=== PATIENT | female | born 1990 | race Caucasian/White ===

== ENCOUNTER 2016-11-13 08:21 | Outpatient (CLI) | payer OTHER ==
[~2016-11-13] VITALS: Ht 170.2 cm; Wt 81.5 kg
[2016-11-13] MEDS ORDERED: PRENAT PO (08:34)
[2016-11-13] MEDS ORDERED: FOLI20CA PO (08:34)
[2016-11-13] MEDS ORDERED: CITRACAL PO (08:35)
[2016-11-13] MEDS ORDERED: FERR325C PO (08:35)
[2016-11-13 08:36] VITALS: BP 119/77; PULSE 98; RESP 18; Ht 170.2 cm; Wt 81.5 kg
--- NOTE | 2016-11-13 09:30 | RADRPT ---
PROCEDURE: US OB. CLINICAL INDICATION: Post dates TECHNIQUE: Multiple sonographic images of the pelvis were obtained. Transabdominal imaging only w as performed. The images were reviewed on a PACS workstation. COMPARISON: No prior studies are available for comparison. FINDINGS: Single intrauterine gestation. Cephalic presentation. heart rate is 146 bpm. Measurements were made in order to determine age. The results are as follows: BPD = 9.16 cm HC = 32.45 cm AC = 34.62 cm FL = 7.55 cm Gestational age is 37 weeks 5 days and CECIL is 11/29/2016 by ultrasound criteria. Gestational age is 40 weeks 5 days and CECIL is 11/08/2016 by LMP. EFW = 3414 g +/- 512 g (25 %). The placenta is posterior. There is no evidence for an abruption or placenta previa. IMPRESSION: 1. Single live intrauterine gestation of approximately 37 weeks 5 days by ultrasound criteria. RPTAT: GG .Nam Aguirre MD, MD Date Time Electronically viewed and signed by .Nam Aguirre MD, on 11/13/2016 09:30 .R/
--- NOTE | 2016-11-13 09:31 | RADRPT ---
PROCEDURE: OB ultrasound for biophysical profile CLINICAL INDICATION: Post dates. Biophysical profile. . TECHNIQUE: Multiple sonographic images of the pelvis were obtained. Transabdominal view of the gr avid uterus are available for review. The images were reviewed on a PACS workstation. COMPARISON: None FINDINGS: breathing movement = 2/2 tone = 2/2 motion = 2/2 GURJIT = 2/2 Single intrauterine gestation is identified in cephalic position. heart rate is 141 bpm. Plac enta is posterior without evidence for abruption or previa. GURJIT measures 14.3 cm, within normal al its. IMPRESSION: 1. Single live intrauterine gestation. 2. Biophysical profile = 8/8. 3. GURJIT = 14.3 cm. RPTAT: GG .Nam Aguirre MD, Date Time Electronically viewed and signed by .Nam Aguirre MD, on 11/13/2016 09:31 .R/
== END 2016-11-13 10:34 | disposition home or self-care (01) ==
LOC: OBT 08:21 → L-D 08:22 → OBT 10:34
PROVIDERS: ATTEND Obstetrics & Gynecology
DX: O48.0 Post-term pregnancy (principal); Z3A.40 40 weeks gestation of pregnancy
CPT/HCPCS: 76815; 76818; Z7500; G0463

== ENCOUNTER 2016-11-15 06:00 | Inpatient (IN) | payer OTHER ==
[~2016-11-15] VITALS: Ht 170.2 cm; Wt 79.7 kg
[~2016-11-15 06:00] MED LIST: CITRACAL PO; FERR325C PO; FOLI20CA PO; PRENAT PO
[2016-11-15] MEDS ORDERED: LACTATED RINGER'S 1,000 ML IV SCH (10:28)
[2016-11-15] MEDS ORDERED: MISOPROSTOL 200 MCG TAB PR PRN (10:30)
[2016-11-15] MEDS ORDERED: IBUPROFEN 600 MG TAB PO PRN (10:30)
[2016-11-15] MEDS ORDERED: OXYTOCIN 30 UNITS/LR 500 ML IV SCH (10:30)
[2016-11-15] MEDS ORDERED: LIDOCAINE 1% (MPF) 30 ML INJ INJ PRN (10:30)
[2016-11-15] MEDS ORDERED: ACETAMINOPHEN/CODEINE #3 TAB PO PRN (10:30)
[2016-11-15] MEDS ORDERED: CARBOPROST 250 MCG INJ IM PRN (10:30)
[2016-11-15] MEDS ORDERED: METHYLERGONOVINE 0.2 MG INJ IM PRN (10:30)
[2016-11-15] MEDS ORDERED: BUTORPHANOL 2 MG INJ IV PRN (10:30)
[2016-11-15] MEDS ORDERED: OXYTOCIN 30 UNITS/LR 500 ML IV PRN (10:30)
[2016-11-15 10:49] VITALS: Ht 170.2 cm; Wt 79.7 kg
[2016-11-15 10:50] VITALS: BP 116/71; PULSE 82; RESP 20
[2016-11-15] MEDS: LACTATED RINGER'S 1,000 ML IV SCH ×3 (11:06→21:45)
[2016-11-15 11:18] VITALS: BP 113/73; PULSE 86
[2016-11-15 11:27] LABS: BASOPHILS % 0.2 % (0.0-2.0); EOSINOPHILS # 0.1 10^3/ul (0.0-0.5); EOSINOPHILS % 0.6 % (0.0-7.0); HEMOGLOBIN 13.4 g/dl (12.0-16.0); LYMPHOCYTES % 18.4 % (15.0-51.0); MEAN CORPUSCULAR HEMOGLOBIN 29.8 pg (29.0-33.0); MEAN CORPUSCULAR HGB CONC 32.8 g/dl (32.0-37.0); MEAN CORPUSCULAR VOLUME 90.8 fl (82.0-101.0); MEAN PLATELET VOLUME 8.7 fl (7.4-10.4); MONOCYTE # 0.8 10^3/ul (0.3-0.9); MONOCYTES % 7.2 % (0.0-11.0); NEUTROPHIL # 7.9 10^3/ul (1.6-7.5); NEUTROPHILS % 73.6 % (39.0-77.0); PLATELET COUNT 248 10^3/UL (140-440); RED BLOOD COUNT 4.51 10^6/ul (4.20-5.40); RED CELL DISTRIBUTION WIDTH 16.5 % (11.5-14.5); UNCORRECTED WBC 10.7 10^3/ul (4.8-10.8); WHITE BLOOD COUNT 10.7 10^3/ul (4.8-10.8)
[2016-11-15 11:31] LABS: CONDITION 1; LH ANALYZER COMMENTS 1
[2016-11-15 11:42] LABS: INR 0.91; PROTIME 12.3 Sec (12.2-14.2)
[2016-11-15 11:43] LABS: PARTIAL THROMBOPLASTIN TIME 25.2 Sec (25.0-35.0)
[2016-11-15 11:59] VITALS: BP 107/63; PULSE 86
[2016-11-15] MEDS ORDERED: DINOPROSTONE 10 MG VAG SUPP VAG ONE (12:00)
[2016-11-15] MEDS ORDERED: LACTATED RINGER'S 1,000 ML IV PRN (12:00)
[2016-11-16] MEDS: LACTATED RINGER'S 1,000 ML IV SCH ×4 (05:39→20:20)
[2016-11-16 08:05] VITALS: BP 97/54; PULSE 67; RESP 20
[2016-11-16] MEDS ORDERED: FENTAnyl 2MCG/ML-ROPIV 0.2% 100 ML ONE (11:47)
[2016-11-16] MEDS ORDERED: ZOLPIDEM 5 MG TAB PO PRN (12:30)
[2016-11-16] MEDS ORDERED: NALOXONE (0.4 MG/ML) INJ IV PRN (12:30)
[2016-11-16] MEDS ORDERED: HYDROmorphONE 1 MG/ML SYG IV PRN ×2 (12:30)
[2016-11-16] MEDS ORDERED: DIPHENHYDRAMINE 50 MG INJ IV PRN (12:30)
[2016-11-16] MEDS: FENTAnyl 2MCG/ML-ROPIV 0.2% 100 ML BAG EPI SCH ×2 (12:52→17:31)
[2016-11-16] MEDS: OXYTOCIN 30 UNITS/LR 500 ML IV SCH (13:00)
[2016-11-16] MEDS ORDERED: ONDANSETRON 4 MG INJ ONE (13:00)
[2016-11-16] MEDS: ONDANSETRON 4 MG INJ IV PRN ×2 (13:20→22:58)
[2016-11-17] MEDS: FENTAnyl 2MCG/ML-ROPIV 0.2% 100 ML BAG EPI SCH ×3 (00:17→09:18)
[2016-11-17] MEDS: LACTATED RINGER'S 1,000 ML IV SCH ×3 (02:24→10:49)
[2016-11-17] MEDS: OXYTOCIN 30 UNITS/LR 500 ML IV SCH ×5 (09:59→21:23)
[2016-11-17] MEDS ORDERED: CEFAZOLIN 2 GM/50 ML (PMX) 50 ML IVPB ONE (12:27)
--- NOTE | 2016-11-17 13:07 | HP ---
Date/Time of Note Date/Time of Note DATE: 11/17/16 TIME: 12:49 OB - History Hx of Present Free Text/Dictation 26 years old female 1 para 0 EDC November 08, 2016 admitted to [facility] at 41 week and 1 day for induction of labor, Pelvic examination on admission cervical dilatation less than 1 cm, 50% effacement vertex at -3 station. This patient has been getting care at [facility] her not complicated with gestational diabetes -induced hypertension or any other medical or surgical condition . Past history No history of hospital admission for any medical or surgical condition Family history, unremarkable negative for diabetes hypertension or psychological condition Allergy. Denies allergy to any known medication Social habit, denies a smoking or drinking or using any illicit drugs Review of system within normal compatible with term . Physical examination Temperature 98.2, pulse 86, respiration 18, blood pressure 113/73 Head ears nose and throat negative, neck supple no thyromegaly lungs clear to P& A, heart normal sinus rhythm no murmur, abdomen, fundal height 37 cm from symphysis pubis to the height of the fundus heart tone category 1. Pelvic exam cervix less than 1 cm dilated 50% effaced vertex at -2 station Extremities, no varicosities no edema Impression, intrauterine at 41 weeks plus gestation, admitted for induction of labor Plan of induction, intravaginal Cervidil. ., Estimated Due Date: Nov 08, 2016 : 1 Para: 0 Care: Good Care Ultrasounds: Normal mid trimester US Obstetrical Complications: None Medical Complications: None Past Family/Social History * Past Medical, Surgical, Family and Obstetric Histories reviewed from chart. Rubella: immune RPR/VDRL: Negative GBS Status: Negative HBsAG: Negative OB Admission Exam Vital Signs Vital Signs Vital Signs Date Time Temp Pulse Resp B/P Pulse Ox O2 Delivery O2 Flow Rate FiO2 11/16/16 08:05 67 20 11/15/16 10:50 98.2 116/71 Room Air Physical Exam HEENT: WNL Heart: Rhythm Normal Abdomen: WNL Extremities: Normal Reflexes: Normal Cervical Dilatation: Fingertip Effacement: 50% Station: -2 Membranes: Intact Amniotic Fluid: Thin Meconium Heart Rate: 130's Accelerations: Accelerations Present Decelerations: No Decelerations Varibility: Absent Last 72 hours Lab Results CBC & BMP 2/1/17 11:05 KENNY TIPTON MD Nov 17, 2016 13:05
--- NOTE | 2016-11-17 13:12 | LDN ---
Date/Time of Note Date/Time of Note DATE: 11/17/16 TIME: 13:07 Delivery Summary Normal spontaneous vaginal delivery of a baby boy from INGRID position shoulders delivered without difficulty rest of the baby's body follow nasal oropharyngeal suction to cord clamp after stopped pulsation baby handed to the team for immediate attention, placenta spontaneous expulsion inspected complete culture and sensitivity for aerobic and anaerobic from both side of the placenta and it was sent to pathology. Placenta Delivered: Spontaneously Meconium: Light Perineum intact?: No Anesthesia type: Epidural Estimated blood loss: 200 Sponge & Needle done & correct: Yes All needle counts correct: Yes Any foreign bodies felt in the: No Problems: Infant Delivery Information Sex Sex: male Apgars 1 Minute: 8 5 Minute: 9 Suctioning Nose & mouth suctioned at lashell: Yes Delee suction performed: Yes Umbilical Cord Umbilical cord with: 3 Vessels Cord presentations: nuchal cord Nuchal cord present X: 1 Cord Blood was obtained: Yes KENNY TIPTON MD Nov 17, 2016 13:12
[2016-11-17] MEDS ORDERED: CEFAZOLIN 2 GM/50 ML (PMX) 50 ML IVPB SCH (14:00)
[2016-11-17 14:05] VITALS: BP 111/56; PULSE 104; RESP 20
[2016-11-17] MEDS ORDERED: WITCH HAZEL/GLYCERIN PAD PR PRN (14:30)
[2016-11-17] MEDS ORDERED: DIBUCAINE 1% 30 GM OINT PR PRN (14:30)
[2016-11-17] MEDS ORDERED: ONDANSETRON 4 MG INJ IV PRN (14:30)
[2016-11-17] MEDS ORDERED: BENZOCAINE 20% 56 ML SPRAY TOP PRN (14:30)
[2016-11-17] MEDS ORDERED: LANOLIN 7 GM TUBE TOP PRN (14:30)
[2016-11-17] MEDS ORDERED: ACETAMINOPHEN/CODEINE #3 TAB PO PRN ×2 (14:30)
[2016-11-17] MEDS ORDERED: ACETAMINOPHEN 325 MG TAB PO PRN (14:30)
[2016-11-17] MEDS ORDERED: OXYCODONE/ASPIRIN (4.88/325) TAB PO PRN ×2 (14:30)
[2016-11-17 16:48] VITALS: BP 110/60; PULSE 100; RESP 20
[2016-11-17 20:30] VITALS: BP 121/70; PULSE 80; RESP 20
[2016-11-17] MEDS: IBUPROFEN 600 MG TAB PO SCH (21:04)
[2016-11-17] MEDS: CEFAZOLIN 2 GM/50 ML (PMX) 50 ML IVPB SCH (22:22)
[2016-11-18] VITALS (7 sets, daily range): BP systolic 93–121; BP diastolic 57–73; PULSE 73–86; RESP 18–20
[2016-11-18] MEDS: IBUPROFEN 600 MG TAB PO SCH ×5 (05:40→23:42)
[2016-11-18] MEDS: CEFAZOLIN 2 GM/50 ML (PMX) 50 ML IVPB SCH ×2 (05:40→13:38)
[2016-11-18] MEDS: SENNA/DOCUSATE NA (8.6MG/50MG) TAB PO SCH ×2 (09:09→21:06)
[2016-11-18 09:49] LABS: RED BLOOD COUNT 3.75 10^6/ul (4.20-5.40); WHITE BLOOD COUNT 17.4 10^3/ul (4.8-10.8)
[2016-11-18 09:50] LABS: EOSINOPHILS % 0.3 % (0.0-7.0); HEMATOCRIT 34.5 % (37.0-47.0); HEMOGLOBIN 11.3 g/dl (12.0-16.0); LYMPHOCYTES % 9.7 % (15.0-51.0); MEAN CORPUSCULAR HEMOGLOBIN 30.1 pg (29.0-33.0); MEAN CORPUSCULAR HGB CONC 32.8 g/dl (32.0-37.0); MEAN PLATELET VOLUME 10.7 fl (7.4-10.4); MONOCYTES % 6.6 % (0.0-11.0); NEUTROPHILS % 82.6 % (39.0-77.0); PLATELET COUNT 228 10^3/UL (140-440); RED CELL DISTRIBUTION WIDTH 15.8 % (11.5-14.5)
[2016-11-18 09:51] LABS: BASOPHILS % 0.1 % (0.0-2.0); EOSINOPHILS # 0.2 10^3/ul (0.0-0.5); LYMPHOCYTES # 1.7 10^3/ul (0.8-2.9); MONOCYTE # 1.2 10^3/ul (0.3-0.9); NEUTROPHIL # 14.4 10^3/ul (1.6-7.5)
--- NOTE | 2016-11-18 10:46 | PN ---
Date/Time of Note Date/Time of Note DATE: 11/18/16 TIME: 10:45 OB Subjective Subjective Subjective day 1 Afebrile, vital sign a stable, abdomen soft, uterus firm, lochia normal, extremity Laboratory Tests Test 11/18/16 07:00 Basophils # 0.010^3/ul Basophils % 0.1% Eosinophils # 0.210^3/ul Eosinophils % 0.3% Hematocrit 34.5% Hemoglobin 11.3g/dl Lymphocytes # 1.710^3/ul Lymphocytes % 9.7% Mean Corpuscular Hemoglobin 30.1pg Mean Corpuscular Hemoglobin Concent 32.8g/dl Mean Corpuscular Volume 92.0fl Mean Platelet Volume 10.7fl Monocytes # 1.210^3/ul Monocytes % 6.6% Neutrophils # 14.410^3/ul Neutrophils % 82.6% Nucleated Red Blood Cells # 0.010^3/ul Nucleated Red Blood Cells % 0.0/100WBC Platelet Count 51811^3/UL Red Blood Count 3.7510^6/ul Red Cell Distribution Width 15.8% White Blood Count 17.410^3/ul Current Medications Medications (Trade) Dose Ordered Sig/Ga Route PRN Reason Start Time Stop Time Status Last Admin Dose Admin Lactated Ringer's 1,000 ml @ 125 mls/hr Q8H IV 11/15/16 10:28 11/15/16 10:53 DC Lactated Ringer's (Lr) 1,000 ml @ 125 mls/hr Q8H IV 11/15/16 10:28 11/17/16 14:13 DC 11/17/16 10:49 Butorphanol Tartrate (Stadol) 2 mg Q2H PRN IV PAIN 11/15/16 10:30 11/17/16 14:13 DC 11/16/16 07:55 Lidocaine 30 ml 30 ml ONCE PRN INJ EPISIOTOMY/TEARING 11/15/16 10:30 11/17/16 14:13 DC Oxytocin/Lactated Ringer's 500 ml @ 125 mls/hr ONCE -MAY REPEAT X1 IV 11/15/16 10:30 11/17/16 14:13 DC 11/17/16 13:12 Oxytocin/Lactated Ringer's 500 ml @ 125 mls/hr ONCE IV 11/15/16 10:30 11/17/16 14:13 DC Ibuprofen (Motrin) 600 mg ONCE PRN PO Mild Pain (Pain Score 1-3) 11/15/16 10:30 11/17/16 14:13 DC Acetaminophen/ Codeine Phosphate 2 tab 2 tab ONCE PRN PO Moderate to Severe Pain (4-10) 11/15/16 10:30 11/17/16 14:13 DC Lactated Ringer's 1,000 ml @ 2,000 mls/hr Q30M PRN IV PRE-EPIDURAL BOLUS 11/15/16 12:00 11/17/16 14:13 DC 11/16/16 11:35 Oxytocin/Lactated Ringer's 500 ml @ 0 mls/hr ONCE PRN IV For Hemorrhage Management 11/15/16 10:30 11/17/16 14:13 DC Methylergonovine Maleate (Methergine) 0.2 mg ONCE PRN IM VAGINAL BLEEDING 11/15/16 10:30 11/17/16 14:13 DC Carboprost Tromethamine (Hemabate) 250 mcg ONCE PRN IM VAGINAL BLEEDING 11/15/16 10:30 11/17/16 14:13 DC Misoprostol (Cytotec) 1,000 mcg ONCE PRN CO VAGINAL BLEEDING 11/15/16 10:30 11/17/16 14:13 DC Dinoprostone 10 mg 10 mg ONCE ONCE VAG 11/15/16 12:00 11/15/16 12:01 DC 11/15/16 12:05 Oxytocin/Lactated Ringer's 500 ml @ 0 mls/hr TITRATE IV 11/16/16 11:00 11/17/16 14:13 DC 11/17/16 09:59 Fentanyl/ Ropivacaine 100 ml @ ud STK-MED ONCE .ROUTE 11/16/16 11:47 11/16/16 11:48 DC Naloxone HCl (Narcan) 0.1 mg Q2M PRN IV FOR RESP RATE 8 OR LESS 11/16/16 12:30 11/17/16 12:29 DC Hydromorphone HCl (Dilaudid) 0.2 mg Q3H PRN IV PAIN LEVEL 1-5 11/16/16 12:30 11/17/16 12:29 DC Hydromorphone HCl (Dilaudid) 0.4 mg Q3H PRN IV PAIN LEVEL 6-10 11/16/16 12:30 11/17/16 12:29 DC Diphenhydramine HCl (Benadryl) 25 mg Q6H PRN IV ITCHING 11/16/16 12:30 11/17/16 12:29 DC Ondansetron HCl (Zofran Inj) 4 mg Q6H PRN IV NAUSEA AND/OR VOMITING 11/16/16 12:30 11/17/16 12:29 DC 11/16/16 22:58 Zolpidem Tartrate (Ambien) 5 mg HS MAY REPEAT X 1 PRN PO INSOMNIA 11/16/16 12:30 11/17/16 12:29 DC Fentanyl/ Ropivacaine 100 ml EPIDURAL INFUSION EPI 11/16/16 12:30 11/17/16 14:13 DC 11/17/16 09:18 Ondansetron HCl 4 mg 4 mg STK-MED ONCE .ROUTE 11/16/16 13:00 11/16/16 13:01 DC Cefazolin Sodium/ Dextrose 50 ml @ ud STK-MED ONCE IVPB 11/17/16 12:27 11/17/16 12:28 DC Cefazolin Sodium/ Dextrose 50 ml @ 100 mls/hr Q8 IVPB 11/17/16 14:00 11/17/16 14:13 DC 11/17/16 12:37 Oxytocin/Lactated Ringer's 500 ml @ 125 mls/hr Q4H IV 11/17/16 14:10 11/17/16 22:09 DC 11/17/16 21:23 Ibuprofen (Motrin) 600 mg Q6 PO 11/17/16 14:30 11/18/16 05:40 Acetaminophen (Tylenol Tab) 650 mg Q4H PRN PO PAIN LEVEL 1-5 11/17/16 14:30 11/17/16 15:13 Acetaminophen/ Codeine Phosphate (Tylenol No.3) 1 tab Q4H PRN PO PAIN LEVEL 1-5 11/17/16 14:30 Acetaminophen/ Codeine Phosphate (Tylenol No.3) 2 tab Q4H PRN PO PAIN LEVEL 6-10 11/17/16 14:30 Oxycodone/Aspirin (Percodan) 1 tab Q3H PRN PO PAIN LEVEL 1-5 11/17/16 14:30 Oxycodone/Aspirin (Percodan) 2 tab Q3H PRN PO PAIN LEVEL 6-10 11/17/16 14:30 Ondansetron HCl (Zofran Inj) 4 mg Q6H PRN IV NAUSEA AND/OR VOMITING 11/17/16 14:30 Senna/Docusate Sodium (Senokot-S) 1 tab BID PO 11/18/16 09:00 11/18/16 09:09 Witch Gunjan/ Glycerin (Tucks Pads) 1 pad BEDSIDE MEDICATION PRN CO HEMORRHOID/EPISIOTMY PAIN 11/17/16 14:30 Benzocaine (Dermoplast [place]) 1 spray BEDSIDE MEDICATION PRN TOP HEMORRHOID/EPISIOTMY PAIN 11/17/16 14:30 11/17/16 15:13 Dibucaine (Nupercainal) 1 applic BEDSIDE MEDICATION PRN CO HEMORRHOID/EPISIOTMY PAIN 11/17/16 14:30 Lanolin (Myh-O-Nuteyx) 1 applic BEDSIDE MEDICATION PRN TOP BEDSIDE FOR TRACY TO NIPPLES 11/17/16 14:30 Measles/Mumps/ Rubella Vaccine Live 0.5 ml 0.5 ml ONCE ONCE SC* 11/19/16 09:00 11/19/16 09:01 Cefazolin Sodium/ Dextrose (Ancef 2 Gm/50 ml (Pmx)) 50 ml @ 100 mls/hr Q8 IVPB 11/17/16 22:00 11/18/16 05:40 KENNY Graham MD Nov 18, 2016 10:46
[2016-11-19 04:10] VITALS: BP 117/71; PULSE 60; RESP 18
[2016-11-19] MEDS: IBUPROFEN 600 MG TAB PO SCH ×2 (05:32→12:03)
[2016-11-19 08:15] VITALS: BP 132/76; PULSE 71; RESP 16
[2016-11-19] MEDS ORDERED: MEASLES,MUMPS,RUBELLA VACCINE INJ SC* ONE (09:00)
[2016-11-19] MEDS: SENNA/DOCUSATE NA (8.6MG/50MG) TAB PO SCH (09:17)
--- NOTE | 2016-11-19 12:58 | PD.PPDC ---
F[facility]ARD[facility] Discharge Instruction Condition Patient Condition: Good Diet Diet: Resume Regular Diet Activity/Restrictions Activity: Normal Activity May Shower Restrictions: No Exercising No Lifting No Driving No Sexual Activity Nothing in the Vagina No [place] No Tampons, douche Follow-up Follow-up with Physician: 2, Week/Weeks Return to clinic for [employer] [employer] Instructions: Fever greater than 101 Worsening abdominal pain Excessive Vaginal Bleeding More than 2 pads per hour Unable to tolerate diet OB Instructions: Breast Tenderness Blurried Vision Headache Surgical Instructions: Incisional Drainage Incisional Redness KENNY TIPTON MD Nov 19, 2016 12:58
--- NOTE | 2016-11-19 13:02 | DS ---
Date/Time of Note Date/Time of Note DATE: 11/19/16 TIME: 13:00 Obstetrical Discharge Record Final Diagnosis Final Diagnosis: Term delivered Vaginal Delivery Obstetrical Delivery: Spontaneous Condition on Discharge Physical Assessment Last Vitals: day 2 Vital sign stable, afebrile, abdomen soft, uterus firm, lochia normal, extremity normal Current Medications Medications (Trade) Dose Ordered Sig/Ga Route PRN Reason Start Time Stop Time Status Last Admin Dose Admin Lactated Ringer's 1,000 ml @ 125 mls/hr Q8H IV 11/15/16 10:28 11/15/16 10:53 DC Lactated Ringer's (Lr) 1,000 ml @ 125 mls/hr Q8H IV 11/15/16 10:28 11/17/16 14:13 DC 11/17/16 10:49 Butorphanol Tartrate (Stadol) 2 mg Q2H PRN IV PAIN 11/15/16 10:30 11/17/16 14:13 DC 11/16/16 07:55 Lidocaine 30 ml 30 ml ONCE PRN INJ EPISIOTOMY/TEARING 11/15/16 10:30 11/17/16 14:13 DC Oxytocin/Lactated Ringer's 500 ml @ 125 mls/hr ONCE -MAY REPEAT X1 IV 11/15/16 10:30 11/17/16 14:13 DC 11/17/16 13:12 Oxytocin/Lactated Ringer's 500 ml @ 125 mls/hr ONCE IV 11/15/16 10:30 11/17/16 14:13 DC Ibuprofen (Motrin) 600 mg ONCE PRN PO Mild Pain (Pain Score 1-3) 11/15/16 10:30 11/17/16 14:13 DC Acetaminophen/ Codeine Phosphate 2 tab 2 tab ONCE PRN PO Moderate to Severe Pain (4-10) 11/15/16 10:30 11/17/16 14:13 DC Lactated Ringer's 1,000 ml @ 2,000 mls/hr Q30M PRN IV PRE-EPIDURAL BOLUS 11/15/16 12:00 11/17/16 14:13 DC 11/16/16 11:35 Oxytocin/Lactated Ringer's 500 ml @ 0 mls/hr ONCE PRN IV For Hemorrhage Management 11/15/16 10:30 11/17/16 14:13 DC Methylergonovine Maleate (Methergine) 0.2 mg ONCE PRN IM VAGINAL BLEEDING 11/15/16 10:30 11/17/16 14:13 DC Carboprost Tromethamine (Hemabate) 250 mcg ONCE PRN IM VAGINAL BLEEDING 11/15/16 10:30 11/17/16 14:13 DC Misoprostol (Cytotec) 1,000 mcg ONCE PRN MD VAGINAL BLEEDING 11/15/16 10:30 11/17/16 14:13 DC Dinoprostone 10 mg 10 mg ONCE ONCE VAG 11/15/16 12:00 11/15/16 12:01 DC 11/15/16 12:05 Oxytocin/Lactated Ringer's 500 ml @ 0 mls/hr TITRATE IV 11/16/16 11:00 11/17/16 14:13 DC 11/17/16 09:59 Fentanyl/ Ropivacaine 100 ml @ ud STK-MED ONCE .ROUTE 11/16/16 11:47 11/16/16 11:48 DC Naloxone HCl (Narcan) 0.1 mg Q2M PRN IV FOR RESP RATE 8 OR LESS 11/16/16 12:30 11/17/16 12:29 DC Hydromorphone HCl (Dilaudid) 0.2 mg Q3H PRN IV PAIN LEVEL 1-5 11/16/16 12:30 11/17/16 12:29 DC Hydromorphone HCl (Dilaudid) 0.4 mg Q3H PRN IV PAIN LEVEL 6-10 11/16/16 12:30 11/17/16 12:29 DC Diphenhydramine HCl (Benadryl) 25 mg Q6H PRN IV ITCHING 11/16/16 12:30 11/17/16 12:29 DC Ondansetron HCl (Zofran Inj) 4 mg Q6H PRN IV NAUSEA AND/OR VOMITING 11/16/16 12:30 11/17/16 12:29 DC 11/16/16 22:58 Zolpidem Tartrate (Ambien) 5 mg HS MAY REPEAT X 1 PRN PO INSOMNIA 11/16/16 12:30 11/17/16 12:29 DC Fentanyl/ Ropivacaine 100 ml EPIDURAL INFUSION EPI 11/16/16 12:30 11/17/16 14:13 DC 11/17/16 09:18 Ondansetron HCl 4 mg 4 mg STK-MED ONCE .ROUTE 11/16/16 13:00 11/16/16 13:01 DC Cefazolin Sodium/ Dextrose 50 ml @ ud STK-MED ONCE IVPB 11/17/16 12:27 11/17/16 12:28 DC Cefazolin Sodium/ Dextrose 50 ml @ 100 mls/hr Q8 IVPB 11/17/16 14:00 11/17/16 14:13 DC 11/17/16 12:37 Oxytocin/Lactated Ringer's 500 ml @ 125 mls/hr Q4H IV 11/17/16 14:10 11/17/16 22:09 DC 11/17/16 21:23 Ibuprofen (Motrin) 600 mg Q6 PO 11/17/16 14:30 11/19/16 12:03 Acetaminophen (Tylenol Tab) 650 mg Q4H PRN PO PAIN LEVEL 1-5 11/17/16 14:30 11/17/16 15:13 Acetaminophen/ Codeine Phosphate (Tylenol No.3) 1 tab Q4H PRN PO PAIN LEVEL 1-5 11/17/16 14:30 Acetaminophen/ Codeine Phosphate (Tylenol No.3) 2 tab Q4H PRN PO PAIN LEVEL 6-10 11/17/16 14:30 Oxycodone/Aspirin (Percodan) 1 tab Q3H PRN PO PAIN LEVEL 1-5 11/17/16 14:30 Oxycodone/Aspirin (Percodan) 2 tab Q3H PRN PO PAIN LEVEL 6-10 11/17/16 14:30 Ondansetron HCl (Zofran Inj) 4 mg Q6H PRN IV NAUSEA AND/OR VOMITING 11/17/16 14:30 Senna/Docusate Sodium (Senokot-S) 1 tab BID PO 11/18/16 09:00 11/19/16 09:17 Witch Gunjan/ Glycerin (Tucks Pads) 1 pad BEDSIDE MEDICATION PRN MD HEMORRHOID/EPISIOTMY PAIN 11/17/16 14:30 11/18/16 11:36 Benzocaine (Dermoplast White) 1 spray BEDSIDE MEDICATION PRN TOP HEMORRHOID/EPISIOTMY PAIN 11/17/16 14:30 11/17/16 15:13 Dibucaine (Nupercainal) 1 applic BEDSIDE MEDICATION PRN MD HEMORRHOID/EPISIOTMY PAIN 11/17/16 14:30 Lanolin (Iih-L-Cftizs) 1 applic BEDSIDE MEDICATION PRN TOP BEDSIDE FOR TRACY TO NIPPLES 11/17/16 14:30 Measles/Mumps/ Rubella Vaccine Live 0.5 ml 0.5 ml ONCE ONCE SC* 11/19/16 09:00 11/19/16 09:01 DC Cefazolin Sodium/ Dextrose (Ancef 2 Gm/50 ml (Pmx)) 50 ml @ 100 mls/hr Q8 IVPB 11/17/16 22:00 11/19/16 05:34 DC 11/18/16 13:38 Voiding: Yes Bowel Movement: Yes Breast: Soft, non-tender, Filling Fundus: Firm Calf Tenderness: No Patient Condition: Good KENNY TIPTON MD Nov 19, 2016 13:02
== END 2016-11-19 13:45 | disposition home or self-care (01) | DRG 775 ==
LOC: L-D 08:50 → PP1 11-17 13:47
PROVIDERS: ADMIT Obstetrics & Gynecology; ATTEND Obstetrics & Gynecology
PROC: 10E0XZZ Delivery of Products of Conception, External Approach (ICD-10-PCS; principal; 2016-11-17)
DX: O48.0 Post-term pregnancy (principal); O69.81X0 Labor and delivery complicated by cord around neck, without compression, not applicable or unspecified; Z3A.41 41 weeks gestation of pregnancy; Z37.0 Single live birth
CPT/HCPCS: 62319; 85025; 85610; 85730; 86592; 86900; 86901; 87070; 87075; 88307; 99464; J0690; J2405; J2590; J3010; J7120

== ENCOUNTER 2018-01-09 20:03 | Outpatient (CLI) | END 2018-01-09 22:56 | disposition home or self-care (01) ==

== ENCOUNTER 2018-05-13 02:05 | Inpatient (IN) | END 2018-05-15 15:30 | disposition home or self-care (01) | DRG 775 ==